=== PATIENT | male | born 1950 | race Caucasian/White ===

== ENCOUNTER 2017-12-22 09:56 | Emergency (ER) | payer OTHER, MEDICARE ==
[2017-12-22] MEDS ORDERED: NITROGLYCERIN (SL) 0.4 MG TAB SL (10:30)
[2017-12-22] MEDS ORDERED: SODIUM CHLORIDE 0.9% 1L BAG IV* (10:49)
[2017-12-22] MEDS ORDERED: ACETAMINOPHEN 325 MG TAB PO ×2 (11:00→11:30)
[2017-12-22] MEDS ORDERED: ONDANSETRON 4 MG INJ IV ×2 (11:00→11:30)
[2017-12-22] MEDS ORDERED: NACL 0.9% 3 ML SYG IV (11:30)
[2017-12-22] MEDS ORDERED: ZOLPIDEM 5 MG TAB PO (11:30)
[2017-12-22] MEDS ORDERED: HYDROCODONE/APAP (5/325) TAB PO (11:30)
[2017-12-22] MEDS: ASPIRIN 81 MG TAB PO (11:30)
[2017-12-22] MEDS ORDERED: morphine 2 MG INJ IV (11:30)
[2017-12-22] MEDS ORDERED: PROMETHAZINE/CODEINE 5ML CUP PO (11:30)
[2017-12-22 11:50] LABS: ADD MAN DIFF? NO
[2017-12-22 12:29] LABS: LACTIC ACID 1.1 mmol/L (0.5-2.0)
[2017-12-22 12:31] LABS: CREATINE KINASE 29 IU/L (23-200)
[2017-12-22 12:38] LABS: BASOPHIL # 0.1 10^3/ul (0.0-0.1); BASOPHILS % 0.7 % (0.0-2.0); EOSINOPHILS # 0.1 10^3/ul (0.0-0.5); EOSINOPHILS % 1.6 % (0.0-7.0); HEMATOCRIT 38.9 % (42.0-52.0); HEMOGLOBIN 12.6 g/dl (14.0-18.0); LYMPHOCYTES % 13.9 % (15.0-51.0); MEAN CORPUSCULAR HEMOGLOBIN 29.8 pg (29.0-33.0); MEAN CORPUSCULAR HGB CONC 32.4 g/dl (32.0-37.0); MEAN PLATELET VOLUME 10.3 fl (7.4-10.4); MONOCYTE # 0.3 10^3/ul (0.3-0.9); MONOCYTES % 4.3 % (0.0-11.0); NEUTROPHIL # 5.9 10^3/ul (1.6-7.5); NEUTROPHILS % 79.1 % (39.0-77.0); PLATELET COUNT 205 10^3/UL (140-415); RED BLOOD COUNT 4.23 10^6/ul (4.70-6.10); RED CELL DISTRIBUTION WIDTH 13.2 % (11.5-14.5)
[2017-12-22 12:38] LABS: WHITE BLOOD COUNT 7.5 10^3/ul (4.8-10.8)
[2017-12-22 12:42] LABS: CK INDEX 0.8
[2017-12-22 12:45] LABS: CK-MB < 0.22 ng/ml (0.0-2.4); TROPONIN-I < 0.012 ng/ml (0.00-0.12)
[2017-12-22 12:46] LABS: ANION GAP 15 (8-16); BLOOD UREA NITROGEN 18 mg/dl (7-20); CALCIUM 8.9 mg/dl (8.4-10.2); CARBON DIOXIDE 31 mmol/L (21-31); CHLORIDE 105 mmol/L (97-110); GLUCOSE 105 mg/dl (70-220); POTASSIUM 3.9 mmol/L (3.5-5.1); SODIUM 147 mmol/L (135-144)
[2017-12-22] MEDS ORDERED: IOHEXOL 300MG/ML 150 ML BTL (12:55)
[2017-12-22] MEDS ORDERED: SOD CHLORIDE 0.9% 100 ML (12:55)
[2017-12-22] MEDS: ONDANSETRON 4 MG INJ IV (12:56)
[2017-12-22] MEDS: morphine 4 MG/ML VIAL IV (12:56)
[2017-12-22] MEDS: NITROGLYCERIN 2% 1 GM OINT PKT TD (12:58)
[2017-12-22 13:00] LABS: TROPONIN-I < 0.012 ng/ml (0.00-0.12)
[2017-12-22] MEDS: CEFTRIAXONE 1 GM/50 ML (PMX) 50 ML IVPB (13:00)
[2017-12-22] MEDS: AZITHROMYCIN 500MG/NS (PMX) 250 ML IV (14:16)
[2017-12-22 15:41] LABS: LACTIC ACID 0.7 mmol/L (0.5-2.0)
[2017-12-22 15:43] LABS: CREATINE KINASE 25 IU/L (23-200)
[2017-12-22 15:54] LABS: CK INDEX 0.9
[2017-12-22 15:55] LABS: CK-MB < 0.22 ng/ml (0.0-2.4); TROPONIN-I < 0.012 ng/ml (0.00-0.12)
[2017-12-23] MEDS ORDERED: PANTOPRAZOLE (EC) 40 MG TAB PO (06:00)
[2017-12-23] MEDS ORDERED: ENOXAPARIN 40 MG/0.4 ML SYG SC (09:00)
[2017-12-23] MEDS ORDERED: CEFTRIAXONE 1 GM/50 ML (PMX) 50 ML IVPB (09:00)
[2017-12-23] MEDS ORDERED: AZITHROMYCIN 500MG/NS (PMX) 250 ML IVPB (09:00)
[2017-12-23] MEDS ORDERED: DIATR MEGLU/DIATRIZOATE SODIUM 120 ML BTL (16:17)
== END 2017-12-22 18:27 | disposition home or self-care (01) ==
LOC: E/R 09:56
DX: R07.89 Other chest pain (principal)
CPT/HCPCS: 71045; 74177; 80048; 82550; 82553; 83605; 84484; 85025; 93005; 93306; 96374; 96375; 99285-25

== ENCOUNTER 2019-03-24 12:29 | Inpatient (IN) | payer MEDICARE, OTHER ==
[2019-03-24 14:59] LABS: ADD MAN DIFF? NO
[2019-03-24] MEDS: OXYCODONE/ACETAMINOPHEN (5/325) TAB PO (15:01)
[2019-03-24] MEDS: SOD CHLORIDE 0.9% 1,000 ML IV ×2 (15:01→18:48)
[2019-03-24] MEDS: ONDANSETRON 4 MG INJ IV (15:01)
[2019-03-24] MEDS: KETOROLAC 15 MG INJ IV (15:01)
[2019-03-24 15:08] LABS: BASOPHILS % 0.5 % (0.0-2.0); EOSINOPHILS # 0.2 10^3/ul (0.0-0.5); EOSINOPHILS % 2.4 % (0.0-7.0); HEMATOCRIT 42.2 % (42.0-52.0); LYMPHOCYTES # 1.1 10^3/ul (0.8-2.9); MEAN CORPUSCULAR HEMOGLOBIN 28.3 pg (29.0-33.0); MEAN CORPUSCULAR HGB CONC 30.8 g/dl (32.0-37.0); MEAN CORPUSCULAR VOLUME 91.7 fl (82.0-101.0); MEAN PLATELET VOLUME 12.1 fl (7.4-10.4); MONOCYTE # 0.8 10^3/ul (0.3-0.9); MONOCYTES % 9.9 % (0.0-11.0); NEUTROPHIL # 5.5 10^3/ul (1.6-7.5); NEUTROPHILS % 72.1 % (39.0-77.0); PLATELET COUNT 197 10^3/UL (140-415); RED CELL DISTRIBUTION WIDTH 16.1 % (11.5-14.5)
[2019-03-24 15:08] LABS: WHITE BLOOD COUNT 7.6 10^3/ul (4.8-10.8)
[2019-03-24 15:22] LABS: ADD UMIC YES; UR ASCORBIC ACID NEGATIVE (NEGATIVE); UR BILIRUBIN (Dip) NEGATIVE (NEGATIVE); UR BLOOD (Dip) NEGATIVE (NEGATIVE); UR CLARITY CLOUDY (CLEAR); UR COLOR AMBER (YELLOW); UR GLUCOSE (Dip) NEGATIVE (NEGATIVE); UR KETONES (Dip) NEGATIVE (NEGATIVE); UR LEUKOCYTE ESTERASE (Dip) NEGATIVE Leu/ul (NEGATIVE); UR MUCUS FEW /HPF (NONE SEEN); UR NITRITE (Dip) NEGATIVE (NEGATIVE); UR RBC 11 /HPF (0-5); UR TOTAL PROTEIN (Dip) NEGATIVE (NEGATIVE); UR UROBILINOGEN (Dip) 2+ mg/dL (NEGATIVE); UR WBC 3 /HPF (0-5)
[2019-03-24 15:24] LABS: ALANINE AMINOTRANSFERASE 16 IU/L (13-69); ALBUMIN 4.3 g/dl (3.3-4.9); ALBUMIN/GLOBULIN RATIO 1.26; ALKALINE PHOSPHATASE 66 IU/L (42-121); ANION GAP 8 (5-13); ASPARTATE AMINO TRANSFERASE 30 IU/L (15-46); BILIRUBIN,INDIRECT 0.5 mg/dl (0-1.1); BILIRUBIN,TOTAL 0.5 mg/dl (0.2-1.3); BLOOD UREA NITROGEN 23 mg/dl (7-20); CALCIUM 9.5 mg/dl (8.4-10.2); CARBON DIOXIDE 27 mmol/L (21-31); CHLORIDE 106 mmol/L (97-110); CREATININE 1.31 mg/dl (0.61-1.24); Estimated GFR 54 mL/min (>60); GLUCOSE 127 mg/dl (70-220); LIPASE 100 U/L (23-300); POTASSIUM 5.2 mmol/L (3.5-5.1); SODIUM 141 mmol/L (135-144); TOTAL PROTEIN 7.7 g/dl (6.1-8.1)
[2019-03-24] MEDS: PIPER-TAZO 3.375 GM IV (PMX) 100 ML IVPB ×2 (17:09→22:05)
[2019-03-24 17:30] LABS: PROTIME 12.3 Sec (11.9-14.9)
[2019-03-24 17:31] LABS: PARTIAL THROMBOPLASTIN TIME 29.3 Sec (23.0-35.0)
[2019-03-24] MEDS ORDERED: ONDANSETRON 4 MG INJ IV (18:30)
[2019-03-24] MEDS: HYDROmorphONE 1 MG/ML SYG IV ×2 (18:57→22:04)
[2019-03-24] MEDS: FAMOTIDINE 20 MG INJ IV (21:33)
[2019-03-25] MEDS: HYDROmorphONE 1 MG/ML SYG IV ×6 (02:51→22:29)
[2019-03-25] MEDS: PIPER-TAZO 3.375 GM IV (PMX) 100 ML IVPB ×3 (05:54→21:23)
[2019-03-25] MEDS: SOD CHLORIDE 0.9% 1,000 ML IV ×3 (05:54→18:51)
[2019-03-25 06:20] LABS: ADD MAN DIFF? NO
[2019-03-25 06:30] LABS: WHITE BLOOD COUNT 4.7 10^3/ul (4.8-10.8)
[2019-03-25 06:30] LABS: BASOPHILS % 0.6 % (0.0-2.0); EOSINOPHILS # 0.2 10^3/ul (0.0-0.5); EOSINOPHILS % 4.5 % (0.0-7.0); HEMATOCRIT 34.1 % (42.0-52.0); HEMOGLOBIN 10.3 g/dl (14.0-18.0); LYMPHOCYTES # 1.2 10^3/ul (0.8-2.9); LYMPHOCYTES % 25.8 % (15.0-51.0); MEAN CORPUSCULAR HGB CONC 30.2 g/dl (32.0-37.0); MEAN CORPUSCULAR VOLUME 92.7 fl (82.0-101.0); MEAN PLATELET VOLUME 11.6 fl (7.4-10.4); MONOCYTE # 0.4 10^3/ul (0.3-0.9); MONOCYTES % 9.2 % (0.0-11.0); NEUTROPHIL # 2.8 10^3/ul (1.6-7.5); NEUTROPHILS % 59.5 % (39.0-77.0); PLATELET COUNT 143 10^3/UL (140-415); RED BLOOD COUNT 3.68 10^6/ul (4.70-6.10); RED CELL DISTRIBUTION WIDTH 16.2 % (11.5-14.5)
[2019-03-25 06:46] LABS: INR 1.04; PROTIME 13.7 Sec (11.9-14.9); PT RATIO 1.1
[2019-03-25 07:10] LABS: LACTIC ACID 0.5 mmol/L (0.5-2.0)
[2019-03-25 07:12] LABS: ALANINE AMINOTRANSFERASE 19 IU/L (13-69); ALBUMIN 2.9 g/dl (3.3-4.9); ALKALINE PHOSPHATASE 50 IU/L (42-121); ANION GAP 5 (5-13); ASPARTATE AMINO TRANSFERASE 14 IU/L (15-46); BILIRUBIN,INDIRECT 0.5 mg/dl (0-1.1); BILIRUBIN,TOTAL 0.5 mg/dl (0.2-1.3); BLOOD UREA NITROGEN 20 mg/dl (7-20); CALCIUM 8.3 mg/dl (8.4-10.2); CARBON DIOXIDE 26 mmol/L (21-31); CHLORIDE 111 mmol/L (97-110); CREATININE 1.31 mg/dl (0.61-1.24); Estimated GFR 54 mL/min (>60); GLUCOSE 89 mg/dl (70-220); MAGNESIUM 1.7 mg/dl (1.7-2.5); PHOSPHORUS 3.4 mg/dl (2.5-4.9); POTASSIUM 4.4 mmol/L (3.5-5.1); SODIUM 142 mmol/L (135-144); TOTAL PROTEIN 5.8 g/dl (6.1-8.1)
[2019-03-25] MEDS: FAMOTIDINE 20 MG INJ IV ×2 (09:05→21:23)
[2019-03-25] MEDS: LORAZEPAM 2 MG INJ IV (16:46)
[2019-03-26] MEDS: ALPRAZOLAM 0.5 MG TAB PO (04:24)
[2019-03-26 05:34] LABS: ADD MAN DIFF? NO
[2019-03-26 05:54] LABS: WHITE BLOOD COUNT 3.7 10^3/ul (4.8-10.8)
[2019-03-26 05:54] LABS: BASOPHILS % 1.1 % (0.0-2.0); EOSINOPHILS # 0.2 10^3/ul (0.0-0.5); EOSINOPHILS % 4.6 % (0.0-7.0); HEMATOCRIT 34.3 % (42.0-52.0); HEMOGLOBIN 10.6 g/dl (14.0-18.0); LYMPHOCYTES % 26.9 % (15.0-51.0); MEAN CORPUSCULAR HEMOGLOBIN 28.3 pg (29.0-33.0); MEAN CORPUSCULAR HGB CONC 30.9 g/dl (32.0-37.0); MEAN CORPUSCULAR VOLUME 91.5 fl (82.0-101.0); MEAN PLATELET VOLUME 12.1 fl (7.4-10.4); MONOCYTE # 0.3 10^3/ul (0.3-0.9); MONOCYTES % 8.2 % (0.0-11.0); NEUTROPHIL # 2.2 10^3/ul (1.6-7.5); NEUTROPHILS % 58.9 % (39.0-77.0); PLATELET COUNT 151 10^3/UL (140-415); RED BLOOD COUNT 3.75 10^6/ul (4.70-6.10); RED CELL DISTRIBUTION WIDTH 15.9 % (11.5-14.5)
[2019-03-26 05:55] LABS: RETICULOCYTE COUNT # 0.039 X10^6 (0.020-0.110)
[2019-03-26 05:55] LABS: RETICULOCYTE RBC 3.74
[2019-03-26] MEDS: PIPER-TAZO 3.375 GM IV (PMX) 100 ML IVPB (06:01)
[2019-03-26 06:08] LABS: ANION GAP 7 (5-13); BLOOD UREA NITROGEN 15 mg/dl (7-20); CALCIUM 8.5 mg/dl (8.4-10.2); CARBON DIOXIDE 28 mmol/L (21-31); CHLORIDE 106 mmol/L (97-110); CREATININE 1.43 mg/dl (0.61-1.24); Estimated GFR 49 mL/min (>60); GLUCOSE 72 mg/dl (70-220); SODIUM 141 mmol/L (135-144)
[2019-03-26 06:14] LABS: IRON 30 ug/dl (35-150)
[2019-03-26 06:21] LABS: MAGNESIUM 1.6 mg/dl (1.7-2.5)
[2019-03-26 06:21] LABS: PHOSPHORUS 3.1 mg/dl (2.5-4.9)
[2019-03-26 06:23] LABS: % IRON SATURATION 12 % SAT (22-52); TOTAL IRON BINDING CAPACITY 242 ug/dl (241-421)
[2019-03-26] MEDS ORDERED: LUBIPROSTONE 24 MCG CAP PO (09:00)
[2019-03-26 10:22] LABS: FOLATE > 20.0 ng/ml (2.8-20.0)
== END 2019-03-26 10:15 | disposition left against medical advice (07) | DRG 386 ==
LOC: E/R 12:29 → 2NE 17:12
DX: K50.812 Crohn's disease of both small and large intestine with intestinal obstruction (principal); J90 Pleural effusion, not elsewhere classified; J44.9 Chronic obstructive pulmonary disease, unspecified; Z90.49 Acquired absence of other specified parts of digestive tract; E86.0 Dehydration; D64.9 Anemia, unspecified; I25.10 Atherosclerotic heart disease of native coronary artery without angina pectoris; F17.200 Nicotine dependence, unspecified, uncomplicated; F41.9 Anxiety disorder, unspecified
CPT/HCPCS: 36415; 74018; 74176; 80048; 80053; 81001; 82607; 82728; 82746; 83540; 83605; 83690; 83735; 84100; 84443; 85025; 85045; 85610; 85730; 87086; 96374; 96375; 99285-25